=== PATIENT | female | born 1995 | race Caucasian/White ===

== ENCOUNTER → 2022-03-06 | Outpatient (CLI) | payer OTHER ==
[2022-03-08 08:09] LABS: CHLAMYDIA BY NAA Negative (Negative); GONOCOCCUS BY NAA Negative (Negative); TRICH VAG BY NAA Negative (Negative)
== END | disposition home or self-care (01) ==
LOC: LAB SHORT 10:32 → LAB 10:32
PROVIDERS: Family Medicine
DX: Z11.3 Encounter for screening for infections with a predominantly sexual mode of transmission (principal)
CPT/HCPCS: 87491; 87591; 87661

== ENCOUNTER 2022-12-08 07:41 | Day surgery (SDC) | payer OTHER ==
[~2022-12-08] VITALS: Ht 167.6 cm; Wt 129.1 kg
[~2022-12-08 07:41] MED LIST: FISH OIL PO; FLUO10 PO; MAGNESIUM PO
--- NOTE | 2022-12-08 08:41 | NUR ---
Ambulatory in Day Surgery History, Chart, Medications and Allergies reviewed before start of procedure. Pre-Op teaching done. Pt verbalizes understanding. Patient States Post-Procedure ride home has been arranged.
--- NOTE | 2022-12-08 09:12 | NUR ---
NEW ORDERS PER DR MCWILLIAMS TO TREAT WITH ALBUTEROL UDN, DECADRON 10MG IV AND BENADRYL IN PREOP PRIOR TO SURGERY.
--- NOTE | 2022-12-08 09:57 | NUR ---
12/08/22 0957 Love Draper 3G ANCEF STARTED IN PREOP AT 0920
--- NOTE | 2022-12-08 11:49 | NUR ---
REPORT RECEIVED FROM MALARIOLOGIST. MARIALUISA. PT DENIES PAIN OR NAUSEA AT THIS TIME. PT HAS [address] ON ABDOMEN ALL C/D/I WITHOUT DRAINAGE, REDNESS, OR SWELLING. PT REQUESTING PO FLUIDS AND TOLERATING THEM WELL. PT CAN POSITION SELF IN BED AND IS RESTING COMFORTABLY.
--- NOTE | 2022-12-08 12:15 | NUR ---
Patient up to Ambulate independently. Gait steady. Discharge instructions reviewed with patient. Patient verbalizes understanding. Copy given to patient to take home. Dressing to procedure site clean, dry, WITH SLIGHT REDNESS TO UMBILICAL INCISION. NO OTHER INCISION DRAINAGE NOTED THROUGHOUT. Patient States Post-Procedure ride home has been arranged. Discharged via wheelchair to private car for ride home. PT BELONGINGS RETURNED TO PT.
== END 2022-12-08 22:47 | disposition home or self-care (01) ==
LOC: ORSCMMR 07:41 → ORD 09:00 → ORSCMMR 09:00
PROVIDERS: Surgery
PROC: 0FT44ZZ Resection of Gallbladder, Percutaneous Endoscopic Approach (ICD-10-PCS; principal; 2022-12-08 09:00)
DX: K80.20 Calculus of gallbladder without cholecystitis without obstruction (principal); E66.01 Morbid (severe) obesity due to excess calories; Z68.42 Body mass index [BMI] 45.0-49.9, adult; F41.9 Anxiety disorder, unspecified; Z79.899 Other long term (current) drug therapy
CPT/HCPCS: 88304; A9270; J0171; J0690; J1100; J1200; J1885; J2405; J2704; J2795; J3010; J7120

== ENCOUNTER → 2023-03-13 | Outpatient (CLI) | payer OTHER ==
[2023-03-18 14:09] LABS: HPV 16 Negative (Negative); HPV 18 Negative (Negative); HPV OTHER HR TYPES Negative (Negative)
== END ==
LOC: LAB SHORT 16:00 → LAB 16:00
PROVIDERS: Family Medicine
DX: Z01.419 Encounter for gynecological examination (general) (routine) without abnormal findings (principal)
CPT/HCPCS: 87624; G0145

== ENCOUNTER → 2024-05-18 | Outpatient (CLI) | payer OTHER | END | disposition home or self-care (01) | LOC: LAB SHORT 07:48 | DX: B35.1 Tinea unguium (principal); L60.2 Onychogryphosis | CPT/HCPCS: 88305; 88312 ==